=== PATIENT | male | born 1960 | race Caucasian/White ===

== ENCOUNTER 2017-10-06 09:08 | Observation (INO) | payer BC, OTHER ==
[2017-10-06] MEDS ORDERED: NS 1,000 ML IV ONE (09:15)
[2017-10-06] MEDS ORDERED: ASPIRIN EC 325 MG TAB PO ONE (09:15)
[2017-10-06] MEDS ORDERED: DIAZEPAM 5 MG TAB PO ONE (09:15)
[2017-10-06] MEDS ORDERED: FAMOTIDINE 20 MG TAB PO ONE (09:15)
[2017-10-06] MEDS ORDERED: diphenhydrAMINE 25 MG CAP PO ONE (09:15)
--- NOTE | 2017-10-06 09:45 | CPEKG ---
Heart Rate: 77 RR Interval: 779 P-R Interval: 196 QRSD Interval: 96 QT Interval: 388 QTC Interval: 440 P Belcher: 25 QRS Belcher: 37 T Wave Belcher: 7 EKG Severity - BORDERLINE ECG - EKG Impression: SINUS RHYTHM Electronically Signed By: Rick Thurston 06-Oct-2017 12:08:57
--- NOTE | 2017-10-06 10:29 | PDHPUP ---
History & Physical Update H&P update statement: This history and physical update is based on an assessment of the patient which was completed after admission or registration (within 24 hours), but prior to the surgery/procedure. H&P update: H&P reviewed & patient examined, no change in patient's condition since H&P completed
--- NOTE | 2017-10-06 10:30 | PDPROPOC ---
Sedation Plan of Care Sedation Plan of Care: vital signs stable, mental status noted, patient educated of risks, benefits, alternatives, patient can tolerate sedation ASA Classification: ASA 2 Planned drugs: fentanyl, midazolam Mallampati Score: Class 2 Mallampati Reference Image: Patient passed 3-3-2 rule?: Yes
[2017-10-06 10:34] LABS: PROTIME(PATIENT) 13.4 SEC (12.0-15.0)
[2017-10-06 10:39] LABS: PLATELET COUNT 307 10^3/uL (150-400)
[2017-10-06] MEDS ORDERED: LIDOCAINE 1% 300 MG/30 ML SDV ONE (11:08)
[2017-10-06] MEDS ORDERED: fentaNYL 100 MCG/2 ML INJ ONE (11:09)
[2017-10-06] MEDS ORDERED: IOPAMIDOL (ISOVUE-370) 150 ML BTL IV ONE (11:09)
[2017-10-06] MEDS ORDERED: HEPARIN 10,000 UNIT/10 ML MDV (1,000 UNIT/ML) ONE (11:09)
[2017-10-06] MEDS ORDERED: MIDAZOLAM 2 MG/2 ML VIAL ONE (11:09)
[2017-10-06] MEDS ORDERED: VERAPAMIL 5 MG/2 ML VIAL ONE (11:09)
[2017-10-06] MEDS ORDERED: ONDANSETRON 4 MG/2 ML VIAL IVP PRN (12:19)
[2017-10-06] MEDS ORDERED: ATROPINE SULFATE 1 MG/10 ML SYR IVP PRN (12:19)
[2017-10-06] MEDS ORDERED: HYDROCODONE/APAP 5/325 TAB PO PRN (12:19)
[2017-10-06] MEDS ORDERED: OXYCODONE/APAP 5/325 TAB PO PRN (12:19)
[2017-10-06] MEDS ORDERED: NITROGLYCERIN 0.4 MG BTL SL PRN (12:19)
--- NOTE | 2017-10-06 12:28 | PDDXCAT ---
Diagnostic Cath Note - . Date: 10/06/17 Special Tester: Reji Indication: other (NSTEMI in late 2017; abnormal nuclear stress test) - Procedure Access: right groin (initially attempted from right wrist but tortuosity precluded directing of a catheter into the ascending aorta) Procedure: left heart catheterization, coronary angiography, left ventriculogram - Materials Left Heart Cath size: 6F Left Heart Cath materials: standard multipack (JL4, JR4, pigtail) - Findings-Left Heart Catheterization LM: Normal. LAD: Minimal luminal irregularities. LCX: Minimal luminal irregularities. RCA: Proximla 50% stenosis; otherwise minimal luminal irregularities. EDP: 20 mmHg LVEF: 60% Wall motion: Normal. Estimated blood loss: <50ml Closure method: Angioseal Assessment: 1) [id number] CAD. 2) Normal LV systolic function.
[2017-10-06] MEDS ORDERED: ACETAMINOPHEN 325 MG TAB PO PRN (16:58)
[2017-10-06] MEDS ORDERED: morphINE IR 30 MG TAB PO PRN (17:03)
[2017-10-06] MEDS ORDERED: METHOCARBAMOL 500 MG TAB PO PRN (17:03)
[2017-10-06 20:00] VITALS: BP 108/67
[2017-10-06] MEDS ORDERED: METOPROLOL TARTRATE 25 MG TAB PO SCH (21:00)
[2017-10-06] MEDS ORDERED: morphINE SR 30 MG TAB PO SCH (22:00)
[2017-10-07] MEDS ORDERED: ASPIRIN 81 MG CHEWABLE TAB PO SCH (09:00)
[2017-10-07] MEDS ORDERED: HYDROCHLOROTHIAZIDE 25 MG TAB PO SCH (09:00)
[2017-10-07] MEDS ORDERED: ATORVASTATIN CALCIUM 20 MG TAB PO SCH (09:00)
== END 2017-10-06 23:01 | disposition left against medical advice (07) ==
LOC: FCATH 09:08 → F2W 15:53
PROVIDERS: ADMIT Internal Medicine Interventional Cardiology; ATTEND Internal Medicine Interventional Cardiology
DX: R94.39 Abnormal result of other cardiovascular function study (principal); I25.10 Atherosclerotic heart disease of native coronary artery without angina pectoris; I10 Essential (primary) hypertension; I25.2 Old myocardial infarction; Z72.0 Tobacco use
CPT/HCPCS: 93005; 93458; C1769; G0378; C1760; J1644; J2250; J3010; Q9967